=== PATIENT | female | born 1990 | race Caucasian/White ===

== ENCOUNTER 2016-12-03 19:30 | Emergency (ER) | payer SELFPAY ==
[~2016-12-03] VITALS: Wt 102.5 kg
--- NOTE | 2016-12-03 20:46 | ERD ---
ER Documentation Chief Complaint Date/Time DATE: 12/03/16 TIME: 20:44 Chief Complaint dog bite to left wrist yesterday, c/o pain/swelling/redness left arm HPI 26-year-old female comes in to emergency department with a dog bite that occurred to left wrist yesterday afternoon. Patient states that she was walking her dog and she was separate her dog from another person's pet the dog had bitten her on the left wrist. She is right-hand dominant, however has noticed increased redness, swelling and pain localized to the dorsum of the wrist. She states that she did clean the area with soap and water and sprayed antibacterial spray, was applied ointment. She does not recall her last tetanus shot, she states it may have been about 6 years ago however she is not completely sure about this. She denies fevers, chills, headache or systemic complaints. ROS All systems reviewed and are negative except as per history of present illness. Medications Home Meds Active Scripts Ibuprofen* (Motrin*) 600 Mg Tab, 600 MG PO Q6, #30 TAB Prov:SUKUMAR BARTH PA-C 12/03/16 Amoxicillin/Potassium Clav (Amox-Clav 875-125 mg Tablet) 875-125 mg Tab, 1 TAB PO BID for 7 Days, #14 TAB Prov:SUKUMAR BARTH PA-C 12/03/16 Allergies Allergies: Coded Allergies: No Known Drug Allergies (Verified Allergy, Unknown, 12/03/16) PMhx/Soc Medical and Surgical Hx: pt denies Medical Hx, pt denies Surgical Hx Hx Alcohol Use: Yes (socially) Hx Substance Use: No Hx Tobacco Use: Yes (1/2 pack/ day) Smoking Status: Current every day smoker Physical Exam Vitals Vital Signs Date Time Temp Pulse Resp B/P Pulse Ox O2 Delivery O2 Flow Rate FiO2 12/03/16 19:34 99.1 114 20 172/97 99 Physical Exam General: Well-developed, well-nourished. The patient appears in no acute distress. HEENT: Head is normocephalic, atraumatic. Neck: Supple. Nontender. Lungs: Clear to auscultation. Normal air movement. Heart: Regular rate and rhythm. S1 and S2 are normal. No murmurs, gallops, or rubs. Abdomen: Soft, nontender, nondistended. Bowel sounds are normoactive. Extremities: About 5-6 puncture type dog bite wounds to the dorsum of the left wrist. There is soft tissue swelling, with erythema and warmth upon palpation, the swelling extends to the dorsum of the left hand. She is able to make a fist. She is able to flex and extend the wrist, and radial, ulnar, median nerve intact. Compartments are soft. There is no lymphatic streaking. Neurologic: Alert and oriented 3. No focal deficits. Skin: Patient has evidence of sunburn to the extremities and chest Results 24 hrs Current Medications Medications (Trade) Dose Ordered Sig/[place] Route PRN Reason Start Time Stop Time Status Last Admin Dose Admin Ampicillin Sodium/ Sulbactam Sodium (Unasyn 3gm/NS (Pmx)) 100 ml @ 100 mls/hr ONCE ONCE IVPB 12/03/16 21:00 12/03/16 21:59 DC 12/03/16 21:02 Diphtheria/ Tetanus/Acell Pertussis (Adacel) 0.5 ml ONCE ONCE IM* 12/03/16 21:00 12/03/16 21:01 DC 12/03/16 20:53 Ibuprofen (Motrin) 600 mg ONCE ONCE PO 12/03/16 21:00 12/03/16 21:01 DC 12/03/16 20:52 Bacitracin (Bacitracin Oint (Ud)) 1 applic ONCE ONCE TOP 12/03/16 23:30 12/03/16 23:31 Patient: BASIA AYALA : 1990 Age: 26 Sex: F MR #: [id number] DOS: 12/03/162036 Ordering MD: SUKUMAR BARTH PA-C Location: [facility] Room/Bed: PROCEDURE: XR Left Wrist. CLINICAL INDICATION: Dog bite. Pain. TECHNIQUE: AP, lateral and oblique views of the left wrist were performed. COMPARISON: No prior studies are available for comparison. FINDINGS: No acute fracture is identified. Joint relationships are maintained. Bone mineralization is within normal limits. Soft tissues are unremarkable. There is no radiopaque foreign body. IMPRESSION: 1. No acute abnormality. RPTAT: [facility]K .Todd Vieira MD, Date Time Electronically viewed and signed by .Todd Vieira MD, MD on 12/03/2016 22:56 .K/ CC: SUKUMAR BARTH PA-C Procedures/MDM ED course: Patient was given ibuprofen for pain, she was given Unasyn 3 g IV. Tdap was updated. Wound care: Patient had bacitracin and clean dressing applied to the left wrist. MDM: 26-year-old female comes in with left wrist dog bite that occurred yesterday, early signs of cellulitis, there is erythema and warmth and swelling extends to the hand. Due to swelling, fracture was ruled out with an x-ray. She was given a dose of Unasyn in the emergency department. She does appear to present with early cellulitis secondary to a dog bite. At this time she does not have any evidence of tenosynovitis, abscess, this appears to be a localized cellulitis. She does not have any systemic complaints, this does not appear to be requiring continuing IV antibiotics or hospital admission. She was given Augmentin as well as ibuprofen for home and was given strict ER return precautions. She should return sooner for any worsening or new symptoms including fever worsening signs of infection. Otherwise recheck the wound in 1- 2 days with her primary care doctor. Departure Diagnosis: Primary Impression: Dog bite Condition: Good SUKUMAR BARTH PA-C Dec 03, 2016 20:46
[2016-12-03] MEDS ORDERED: IBUPROFEN 600 MG TAB PO ONE (21:00)
[2016-12-03] MEDS ORDERED: AMPICILLIN/SULB 3 GM/NS (PMX) 100 ML IVPB ONE (21:00)
[2016-12-03] MEDS ORDERED: DIPHTH/TET/ACEL PERTUSS (ADULT) 0.5 ML VIAL IM* ONE (21:00)
--- NOTE | 2016-12-03 22:57 | RADRPT ---
PROCEDURE: XR Left Wrist. CLINICAL INDICATION: Dog bite. Pain. TECHNIQUE: AP, lateral and oblique views of the left wrist were performed. COMPARISON: No prior studies are available for comparison. FINDINGS: No acute fracture is identified. Joint relationships are maintained. Bone mineralization is within normal limits. Soft tissues are unremarkable. There is no radiopaque foreign body. IMPRESSION: 1. No acute abnormality. RPTAT: [facility] .Todd Vieira MD, MD Date Time Electronically viewed and signed by .Todd Vieira MD, on 12/03/2016 22:56 .K/
[2016-12-03] MEDS ORDERED: IBUP-1542 PO (23:00)
[2016-12-03] MEDS ORDERED: AMOX1TAB10 PO (23:00)
[2016-12-03] MEDS ORDERED: SULF1TAB31 PO (23:18)
[2016-12-03] MEDS ORDERED: BACITRACIN 0.9 GM OINT TOP ONE (23:30)
== END 2016-12-03 23:15 | disposition home or self-care (01) ==
LOC: FTE 19:30
DX: S61.552A Open bite of left wrist, initial encounter (principal); F17.210 Nicotine dependence, cigarettes, uncomplicated; W54.0XXA Bitten by dog, initial encounter; Y92.9 Unspecified place or not applicable; Z23 Encounter for immunization
CPT/HCPCS: 73110; 90471; 90715; 99283; J0295